=== PATIENT | female | born 1940 | race Caucasian/White ===

== ENCOUNTER → 2017-02-21 | Outpatient (CLI) | payer MEDICARE, OTHER ==
[~2017-02-21] MED LIST: ALENDRONATE SOD70 MG PO; AMBIEN10 MG PO; AMOXICILLIN500 MG PO; ASPIRIN LO-DOSE81 MG PO; B COMPLEX1 EACH PO; CITRACAL950 MG PO; CRESTOR10 MG PO; CYMBALTA30 MG PO; FEOSOL325 MG PO; IRBESARTAN-HCT1 EACH PO; ONE DAILY FOR1 EAC3 PO; PROTONIX40 MG PO; SKELAXIN800 MG PO; TRAMADOL HCL50 MG PO; VITAMIN D-32000 UNI1 PO
== END ==
LOC: GRAD 08:51
DX: R91.1 Solitary pulmonary nodule (principal); D18.03 Hemangioma of intra-abdominal structures; I70.90 Unspecified atherosclerosis; K22.8 Other specified diseases of esophagus; Z98.84 Bariatric surgery status